=== PATIENT | female | born 1985 | race Caucasian/White ===

== ENCOUNTER 2017-03-04 00:05 | Emergency (ER) | payer MEDICAID ==
[2017-03-04] MEDS ORDERED: KETOROLAC 60MG/2ML VIAL IM ONE (02:15)
[2017-03-04] MEDS ORDERED: IBUPROFEN 800MG TABLET PO ONE (02:45)
[2017-03-04 02:47] VITALS: BP 129/80
== END 2017-03-04 02:47 | disposition home or self-care (01) ==
LOC: ER 00:05
DX: R07.9 Chest pain, unspecified (principal)
CPT/HCPCS: 71010; 81025; 93005; 96372; 99284; Z7610; J1885

== ENCOUNTER 2017-06-10 10:25 | Emergency (ER) | payer MEDICAID ==
[~2017-06-10] VITALS: Ht 162.6 cm; Wt 82.0 kg
[2017-06-10 10:36] VITALS: BP 128/81
[2017-06-10] MEDS ORDERED: BACITRACIN ZINC OINT UDPKT TOP ONE (11:45)
[2017-06-10] MEDS ORDERED: LIDOCAINE HCL 1% 20ML VIAL (Pyxis) INJ MC ONE (11:45)
== END 2017-06-10 13:00 | disposition home or self-care (01) ==
LOC: ER 10:54
DX: B35.1 Tinea unguium (principal); L60.0 Ingrowing nail
CPT/HCPCS: 11750; 99284; J3490; Z7610

== ENCOUNTER 2017-09-21 14:52 | Emergency (ER) | payer MEDICAID ==
[~2017-09-21] VITALS: Ht 157.5 cm; Wt 82.0 kg
[2017-09-21 15:16] VITALS: BP 110/68
[2017-09-21] MEDS ORDERED: TETRACAINE 0.5% OPHTH DROPS 4ML OP ONE (16:30)
[2017-09-21] MEDS ORDERED: FLUORESCEIN SODIUM 1MG/STRIP OP ONE (16:30)
== END 2017-09-21 17:32 | disposition home or self-care (01) ==
LOC: ER 16:11
DX: H11.151 Pinguecula, right eye (principal)
CPT/HCPCS: 99283

== ENCOUNTER 2018-05-02 21:21 | Emergency (ER) | payer MEDICAID ==
[~2018-05-02] VITALS: Ht 157.5 cm; Wt 71.1 kg
[2018-05-03] MEDS ORDERED: KETOROLAC 30MG/ML VIAL IV STA (01:29)
[2018-05-03] MEDS ORDERED: FAMOTIDINE 20MG/2ML VIAL IV STA (01:29)
[2018-05-03] MEDS ORDERED: SODIUM CHLORIDE 0.9% 1,000 ML IV ONE (01:29)
[2018-05-03 01:40] LABS: BASOPHILS % 0.1 % (0.0-2.0); HEMATOCRIT. 37.5 % (36.0-48.0); HEMOGLOBIN. 12.8 g/dL (12.0-16.0); LYMPHOCYTES % 10.2 % (20.0-50.0); MEAN CORPUSCULAR HEMOGLOBIN 30.8 pg (28.0-32.0); MEAN CORPUSCULAR VOLUME 90.6 fL (81.0-99.0); MEAN PLATELET VOLUME 8.1 fl (7.4-10.4); MONOCYTES % 2.5 % (2.0-8.0); NEUTROPHILS % 87.2 % (40.0-76.0); PLATELET 318 x1000/uL (130-400); RED BLOOD CELL COUNT 4.14 mill/uL (4.2-5.4); RED CELL DISTRIBUTION WIDTH 12.9 % (11.6-14.6)
[2018-05-03 01:41] LABS: CLARITY URINE CLOUDY (CLEAR); COLOR URINE YELLOW (YELLOW); KETONES URINE TRACE (NEGATIVE); LEUKOCYTE ESTERASE URINE TRACE (NEGATIVE); NITRITE URINE NEGATIVE (NEGATIVE); OCCULT BLOOD URINE NEGATIVE (NEGATIVE); PROTEIN URINE TRACE (NEGATIVE); SPECIFIC GRAVITY URINE 1.026 (1.005-1.030); UROBILINOGEN URINE 0.2 E.U./dL (0.2-1.0)
[2018-05-03 01:45] LABS: CHLORIDE 102 mEq/L (98-107)
[2018-05-03] MEDS ORDERED: ONDANSETRON HCL 4MG/2ML INJ IV ONE (06:00)
[2018-05-03] MEDS ORDERED: MORPHINE SULFATE 4 MG/ML CPJ (NOT FOR IM USE) IV ONE (06:00)
[2018-05-03] MEDS ORDERED: MORPHINE SULFATE 10 MG/ML CPJ IV ONE (06:15)
[2018-05-03 06:25] VITALS: BP 116/60
[2018-05-03] MEDS ORDERED: SUCRALFATE 1G TABLET PO SCH (09:00)
== END 2018-05-03 06:55 | disposition home or self-care (01) ==
LOC: ER 21:21
DX: N39.0 Urinary tract infection, site not specified (principal)
CPT/HCPCS: 36415; 76705; 80053; 81003; 81025; 83690; 85025; 87086; 96361; 96374; 96375; 99284; J1885; J2270; J2405; J3490; J7030

== ENCOUNTER 2025-04-26 12:00 | Emergency (ER) | payer MEDICAID ==
[~2025-04-26] VITALS: Ht 157.5 cm; Wt 82.0 kg
[2025-04-26 12:15] VITALS: O2SAT 97
[2025-04-26 16:37] LABS: BASOPHILS % 0.3 % (0.0-2.0); EOSINOPHILS % 0.1 % (0.0-5.0); HEMATOCRIT. 36.6 % (36.0-48.0); HEMOGLOBIN. 12.3 g/dL (12.0-16.0); LYMPHOCYTES % 8.5 % (20.0-50.0); MEAN PLATELET VOLUME 7.9 fl (7.4-10.4); MONOCYTES % 7.4 % (2.0-8.0); NEUTROPHILS % 83.7 % (40.0-76.0); PLATELET 270 x1000/uL (130-400); RED BLOOD CELL COUNT 4.05 mill/uL (4.2-5.4); RED CELL DISTRIBUTION WIDTH 13.1 % (11.6-14.6)
[2025-04-26 16:49] LABS: CREATININE 0.8 mg/dL (0.6-1.0); UREA NITROGEN BLOOD 8 mg/dL (9-23)
[2025-04-26] MEDS: IBUPROFEN 600MG TABLET PO ONE (17:18)
[2025-04-26 17:41] LABS: COLOR URINE YELLOW (YELLOW); GLUCOSE URINE NEGATIVE (NEGATIVE); KETONES URINE TRACE (NEGATIVE); LEUKOCYTE ESTERASE URINE TRACE (NEGATIVE); NITRITE URINE NEGATIVE (NEGATIVE); OCCULT BLOOD URINE NEGATIVE (NEGATIVE); PH URINE 6.0 (4.5-8.0); PROTEIN URINE 1+ (NEGATIVE); SPECIFIC GRAVITY URINE 1.028 (1.005-1.030); UROBILINOGEN URINE 0.2 E.U./dL (0.2-1.0)
[2025-04-26 19:00] LABS: INFLUENZA TYPE A Detected (Pres. Neg.)
[2025-04-26] MEDS ORDERED: IBUP-1455 MT (19:00)
[2025-04-26] MEDS ORDERED: ACET-2708 MT (19:00)
[2025-04-26 19:01] LABS: INFLUENZA TYPE B Presumptive Negative (Pres. Neg.)
[2025-04-26 19:02] LABS: RESPIRATORY SYNCYTIAL VIRUS Not Detected (Not Detectd)
[2025-04-26 19:04] LABS: CLARITY URINE HAZY (CLEAR)
[2025-04-26 19:05] LABS: BACTERIA URINE TRACE; MUCUS URINE TRACE /lpf (< = 2+); RBC URINE NONE SEEN /hpf (0-2); SQUAMOUS EPITHELIAL CELL URINE 3+ /lpf (RARE/1+); WBC URINE 0-2 /hpf (0-2)
[2025-04-26 19:38] VITALS: BP 116/66; PULSE 101; RESP 18; TEMP 37.1; O2SAT 98
== END 2025-04-26 19:40 | disposition home or self-care (01) ==
LOC: ER 12:00
DX: R05.9 Cough, unspecified (principal); R09.89 Other specified symptoms and signs involving the circulatory and respiratory systems; Z79.899 Other long term (current) drug therapy; Z20.822 Contact with and (suspected) exposure to COVID-19
CPT/HCPCS: 36415; 71045; 80048; 81003; 81025; 85025; 87070; 87420; 87426; 87430; 87804; 93005; 99285